=== PATIENT | female | born 1965 | race Caucasian/White ===

== ENCOUNTER → 2021-02-16 | Outpatient (CLI) | payer OTHER ==
[~2021-02-16] MED LIST: FLAGYL250 MG PO; IBUPROFEN600 MG PO; IMODIUM CAP 2 MG2 MG GT; KLONOPIN TAB 00.5 MG PO; LACTINEX PACKET1 PKT PO; LEVAQUIN500 MG PO; PHENERGAN 12.12.5 M1 PO; TOPAMAX100 MG PO; VITAMIN B-1250 MCG PO
== END ==
LOC: KOH-I 08:50
DX: R10.11 Right upper quadrant pain (principal); K80.20 Calculus of gallbladder without cholecystitis without obstruction
CPT/HCPCS: 76705

== ENCOUNTER → 2021-09-01 | Outpatient (CLI) | payer OTHER | LOC: CT 09:00 | DX: R10.9 Unspecified abdominal pain (principal); R93.5 Abnormal findings on diagnostic imaging of other abdominal regions, including retroperitoneum | CPT/HCPCS: Q9967 ==

== ENCOUNTER → 2021-12-23 | Outpatient (CLI) | payer OTHER | LOC: LAB 16:06 | DX: R10.11 Right upper quadrant pain (principal) | CPT/HCPCS: 36415; 80076; 82150; 83690 ==